=== PATIENT | male | born 1955 ===

== ENCOUNTER 2019-03-28 11:54 | Emergency (ER) | payer MEDICAID ==
[2019-03-28] MEDS ORDERED: Bacitracin Oint 1 GM U/D Packet TOP ONE (13:19)
[2019-03-28] MEDS ORDERED: Lidocaine 1% 30 ML SDV INJECT ONE (13:19)
[2019-03-28 13:40] LABS: ANION GAP 12.3; CHLORIDE,CL 107 mmol/L (101-111); SODIUM,NA 141 mmol/L (135-145)
[2019-03-28] MEDS ORDERED: Diphtheria,Pertussis(Acell),Tetanus Vaccine 0.5 ML SDV IM ONE (14:00)
--- NOTE | 2019-03-28 14:01 | EDM.PDOC ---
ED HPI GENERAL MEDICAL PROBLEM - General Chief Complaint: Head Injury Stated Complaint: SPLIT BACK OF HEAD OPEN [id number] Time Seen by Provider: 03/28/19 12:30 Source of Information: Reports: Patient, RN, RN Notes Reviewed History Limitations: Reports: No Limitations - History of Present Illness INITIAL COMMENTS - FREE TEXT/NARRATIVE: Pt to ER with c/o cut to the back of the head. Patient states he was at work and fell backwards. States he landed first on his back side, then hit his head on a piece of equipment. Patient denies being knocked out, denies visual disturbance, denies N/V. Patient states slight headache. Onset: Today, Sudden Headache Pain Score (Numeric/FACES): 3 - Related Data Allergies Allergy/AdvReac Type Severity Reaction Status Date / Time aspirin Allergy Nausea and Verified 03/28/19 12:09 Vomiting Past Medical History HEENT History: Reports: Impaired Vision, Sinusitis Cardiovascular History: Reports: None Respiratory History: Reports: None Musculoskeletal History: Reports: Back Pain, Chronic Neurological History: Reports: None Endocrine/Metabolic History: Reports: None Dermatologic History: Reports: None - Past Surgical History HEENT Surgical History: Reports: Naso-Sinus Surgery GI Surgical History: Reports: Cholecystectomy Male Surgical History: Reports: None Endocrine Surgical History: Reports: None Social & Family History - Tobacco Use Smoking Status *Q: Current Every Day Smoker Years of Tobacco use: 47 Packs/Tins Daily: 1 - Caffeine Use Caffeine Use: Reports: Coffee - Recreational Drug Use Recreational Drug Use: No ED ROS GENERAL - Review of Systems Review Of Systems: ROS reveals no pertinent complaints other than HPI. ED EXAM, HEAD INJURY - Physical Exam Exam: See Below Exam Limited By: No Limitations General Appearance: Alert, WD/WN, No Apparent Distress Head: Scalp Lacerations, Scalp Swelling Nexus Criteria: Painful Distraction Injuries. No: Posterior, Midline Cervical Tenderness, Evidence of Intoxication, Altered Level of Consciousness, Focal Neurological Deficit Eyes: Bilateral Eye: EOMI, Normal Inspection Ears: Normal External Exam, Hearing Grossly Normal Nose: Normal Inspection Throat/Mouth: Normal Inspection Neck: Non-Tender, Full Range of Motion, Normal Alignment, Normal Inspection Respiratory: No Respiratory Distress, Lungs Clear, Normal Breath Sounds, No Accessory Muscle Use, Chest Non-Tender Cardiovascular: Normal Peripheral Pulses, Regular Rate, Rhythm, No Edema, No Gallop, No JVD, No Murmur, No Rub GI/Abdominal Exam: Normal Bowel Sounds, Soft, Non-Tender (Male) Exam: Deferred Rectal (Males) Exam: Deferred Back Exam: Full Range of Motion, Normal Inspection, NT Extremities: Normal Inspection, Normal Range of Motion, Non-Tender, No Pedal Edema, Normal Capillary Refill 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 As Tested, No Motor/Sensory Deficits, Alert, Normal Mood/Affect, Oriented x 3 Skin: Normal Color, Warm/Dry, Other (3cm laceration to the occiputal region of the head) - Manpreet Coma Score Best Eye Response (Manpreet): (4) Open Spontaneously Best Verbal Response (Manpreet): (5) Oriented Best Motor Response (Slinger): (6) Obeys Commands ED LACERATION/WOUND & GARRY PROC - Laceration/Wound Repair Middle Posterior Head Lac/wound length in cm: 3 Appearance: Subcutaneous Anesthetic Type: Local Local Anesthesia - Lidocaine (Xylocaine): 1% Plain Local Anesthetic Volume: Other (8) Skin Prep: Chlorhexidine (Hibiciens) Exploration/Debridement/Repair: Wound Explored, In a Bloodless Field, Explored to Base, No Foreign Material Found (flushed with 20cc NS) Closed with: Sutures Suture Size: 4-0 # of Sutures: 4 Suture Type: Nylon, Interrupted Suture Size: 4-0 Drain Placement: No Sterile Dressing Applied: Provider Tetanus Status Addressed: Yes Complications: No Course - Vital Signs Last Recorded V/S: Last Vital Signs Temp 97.5 F 03/28/19 12:01 Pulse 51 L 03/28/19 12:01 Resp 18 03/28/19 12:01 BP 198/74 H 03/28/19 12:01 Pulse Ox 97 03/28/19 12:01 - Orders/Labs/Meds Orders: Active Orders 24 hr Category Date Time Status Vaccines to be Administered [RC] PER UNIT ROUTINE Care 03/28/19 14:00 Active Labs: Laboratory Tests 03/28/19 03/28/19 03/28/19 Range/Units 12:49 13:13 13:13 WBC 7.7 (5.0-10.0) 10^3/uL RBC 5.87 (4.6-6.2) 10^6/uL Hgb 17.9 (14.0-18.0) g/dL Hct 51.6 (40.0-54.0) % MCV 87.9 (80-100) fL MCH 30.5 (27.0-34.0) pg MCHC 34.7 (33.0-35.0) g/dL Plt Count 194 (150-450) 10^3/uL Neut % (Auto) 74.3 (42.2-75.2) % Lymph % (Auto) 17.3 L (20.5-50.1) % [place] % (Auto) 5.6 (2-8) % Eos % (Auto) 2.3 (1.0-3.0) % Baso % (Auto) 0.5 (0.0-1.0) % PT 11.0 (9.0-12.0) SEC INR 1.1 (0.9-1.2) Sodium 141 (135-145) mmol/L Potassium 4.3 (3.6-5.0) mmol/L Chloride 107 (101-111) mmol/L Carbon Dioxide 26.0 (21.0-31.0) mmol/L Anion Gap 12.3 BUN 17 (7-18) mg/dL Creatinine 0.9 (0.6-1.3) mg/dL Est Cr Clr Drug Dosing 80.58 mL/min Estimated GFR (MDRD) > 60 BUN/Creatinine Ratio 18.88 Glucose 93 (74-105) mg/dL Calcium 9.4 (8.4-10.2) mg/dl Total Bilirubin 0.8 (0.2-1.0) mg/dL AST 17 (10-42) IU/L ALT 15 (10-60) IU/L Alkaline Phosphatase 57 (42-121) IU/L Total Protein 7.1 (6.7-8.2) g/dl Albumin 4.1 (3.2-5.5) g/dl Globulin 3.0 Albumin/Globulin Ratio 1.37 Meds: Medications Discontinued Medications Generic Name Dose Route Start Last Admin Trade Name Freq PRN Reason Stop Dose Admin Bacitracin 1 dose 03/28/19 13:19 03/28/19 13:26 Bacitracin Oint 1 Gm TOP 03/28/19 13:20 1 dose ONETIME ONE Administration Diphtheria/Tetanus/Acell Pertussis 0.5 ml 03/28/19 14:00 03/28/19 14:05 Adacel IM 03/28/19 14:01 0.5 ml .ONCE ONE Administration Lidocaine HCl 30 ml 03/28/19 13:19 03/28/19 13:25 Xylocaine-Mpf 1% INJECT 03/28/19 13:20 30 ml ONETIME ONE Administration Departure - Departure Time of Disposition: 13:58 Disposition: Home, Self-Care 01 Condition: Fair Clinical Impression: Laceration Head injury Qualifiers: Encounter type: initial encounter Qualified Code(s): S09.90XA - Unspecified injury of head, initial encounter - Discharge Information *PRESCRIPTION DRUG MONITORING PROGRAM REVIEWED*: No *COPY OF PRESCRIPTION DRUG MONITORING REPORT IN PATIENT CALI: No Instructions: Facial or Scalp Contusion, [id number], Head Injury, Adult, Easy -to-Read, Laceration Care, Adult, [id number], Stitches, [place], or Adhesive Wound Closure, [id number] Referrals: PCP,Unobtain [Primary Care Provider] - Forms: ED Department Discharge Additional Instructions: If you begin to experience visual disturbance, vomiting, severe headache, return to the ER May use Tylenol and/or Ibuprofen as directed for pain Keep area clean and dry, may shower normally Follow up with your primary care facility in 7-10 days to have sutures removed. - My Orders Last 24 Hours: My Active Orders 03/28/19 14:00 Vaccines to be Administered [RC] PER UNIT ROUTINE - Assessment/Plan Last 24 Hours: My Active Orders 03/28/19 14:00 Vaccines to be Administered [RC] PER UNIT ROUTINE
== END 2019-03-28 14:13 | disposition home or self-care (01) ==
LOC: DL.ED 11:54
DX: S01.01XA Laceration without foreign body of scalp, initial encounter (principal); F17.210 Nicotine dependence, cigarettes, uncomplicated; Z88.6 Allergy status to analgesic agent; Z23 Encounter for immunization; W18.09XA Striking against other object with subsequent fall, initial encounter; Y92.89 Other specified places as the place of occurrence of the external cause; Y93.89 Activity, other specified; Y99.0 Civilian activity done for income or pay
CPT/HCPCS: 12002; 36415; 80053; 85025; 85610; 90471; 90715; 99283; J2001; 12001